=== PATIENT | male | born 1985 | race Caucasian/White ===

== ENCOUNTER 2017-04-01 18:28 | Emergency (ER) | payer SELFPAY ==
[~2017-04-01] VITALS: Ht 180.3 cm; Wt 67.0 kg
[~2017-04-01 18:28] MED LIST: CHLO.12%30 SSP; CLIN150 PO; HYDR-3533 PO; IBUP800T23 PO
[2017-04-01 18:29] VITALS: BP 136/87; PULSE 62; RESP 20; TEMP 97.9; O2SAT 99
[2017-04-01] MEDS ORDERED: PROPARACAINE HCL 0.5% OPHT SOLN 15 ML BTL RIGHT EYE ONE (19:00)
--- NOTE | 2017-04-01 19:05 | PD ---
HPI Chief Complaint: Eye Problems/Injury Time Seen by Provider: 19:03 Travel History International Travel<30 days: No Contact w/Intl Traveler<30days: No Traveled to known affect area: No History of Present Illness HPI Patient comes in complaining of foreign body sensation. Patient states this started approximately 3 or 4 hours ago while he was using a multifocal button grinder. Patient states he tried dunking his head in a bucket of water seemed to make his symptoms worse. Patient has otherwise been "trying to deal with it". Patient reports some irritation from the sun and when he gets sweat in his right eye. Denies any radiation of the pain. Patient reports associated blurred vision. Describes pain as just an irritation in his right eye without radiation. Patient is uncertain of his last tetanus shot. [facility] Past Medical History Medical History: Denies Significant Hx Social History Alcohol Use: No Tobacco Use: Yes (1/2 ppd) Substance Use: No Allergies-Medications (Allergen,Severity, Reaction): Coded Allergies: No Known Allergies (Unverified , 04/01/17) Reported Meds & Prescriptions Reported Meds & Active Scripts Active Erythromycin Opth Oint 5 Mg/Gm Oint 1 Applic RIGHT EYE QID Review of Systems Except as stated in HPI: all other systems reviewed are Neg Physical Exam Narrative GENERAL: Well-developed, well nourished, in no acute distress, and non-ill appearing. SKIN: Focused skin assessment warm and dry. HEAD: Atraumatic. Normocephalic. EYES: Pupils equal and round. EOMI. No scleral icterus. No injection or drainage. Small black foreign body right eye. ENT: No nasal bleeding or discharge. Mucous membranes pink and moist. NECK: Trachea midline. Supple. No nuclear rigidity. RESPIRATORY: No accessory muscle use. No respiratory distress. MUSCULOSKELETAL: No obvious deformities. No clubbing. No cyanosis. No edema. Full range of motion. NEUROLOGICAL: Awake and alert. No obvious cranial nerve deficits. Motor grossly within normal limits. Normal speech. PSYCHIATRIC: Appropriate mood and affect; insight and judgment normal. Data Data Last Documented VS Vital Signs Date Time Temp Pulse Resp B/P Pulse Ox O2 Delivery O2 Flow Rate FiO2 04/01/17 19:00 62 20 04/01/17 18:29 97.9 136/87 99 Room Air Orders Proparacaine 0.5% Opth Soln (Alcaine 0.5 (04/01/17 19:00) Tetanus/Diphtheria Tox Adult (Tetanus/Di (04/01/17 19:15) MDM Medical Decision Making Medical Screen Exam Complete: Yes Emergency Medical Condition: Yes Differential Diagnosis Foreign body, corneal abrasion, corneal ulcer, flash burn, other Narrative Course The patient presented with foreign body to eye. The patient underwent Coker Lamp exam with stain, as well as lid eversion. The foreign body was removed without incident and patient tolerated this well. Repeat exam revealed no retained foreign body. No history to suspect corneal ulceration as well. There is no evidence of iritis, glaucoma, preseptal cellulitis, periorbital or orbital cellulitis. Will place patient on ophthalmologic antibiotics. This was discussed with the patient. The patient was instructed to follow up with ophthalmology or return here if worsened, increased pain, decreased vision, swelling around the eye or as needed. Ophthalmology referral was given. The patient agreed with plan. Patient in no obvious distress upon re-evaluation. Patient was asked if they wanted to speak to my attending, which the patient did not wish to do at this time. Any questions/concerns in reference to patient diagnosis/condition discussed and clarified prior to patient's discharge. Reinforced sheer importance of close follow up with transportation planning engineer. Instructed patient to return to ED immediately, if symptoms return/worsen. Pt showed understanding of above instructions. Further instructions and recommendations were detailed in discharge paperwork. Pt ambulated without difficulty out of ED at discharge. Procedures Procedure Narrative Verbal consent was obtained. Affected eye was anesthetized using proparacaine. Foreign body was easily removed using a Q-tip. Fluorescein staining and Wood lamp exam performed with small uptake seen. Negative Ranjeet sign. No hyphema, hyperemia, or rust ring. Eyelid was everted with no foreign body noted. No tenderness bilateral temporal arteries to palpation. Patient tolerated procedure well. Diagnosis Primary Impression: Foreign body of right eye Qualified Code: T15.91XA - Foreign body of right eye, initial encounter Referrals: Arianne Araujo MD Patient Instructions: Eye Foreign Body (ED), General Instructions Additional Instructions: Follow-up with Dr. Araujo in one to 3 days for reevaluation. Take all medication as prescribed. Wear eye protection in the future. Return to the emergency department if symptoms get worse. Med/Other Pt SpecificInfo: Prescription(s) given Scripts Erythromycin Opth Oint 5 Mg/Gm Oint1 Applic RIGHT EYE QID #1 TUBE Ref 0 Prov:Melissa Melvin MD 04/01/17 Disposition: 01 DISCHARGE HOME Condition: Stable Jaime Alvarado Apr 01, 2017 19:05
[2017-04-01] MEDS ORDERED: TETANUS/DIPHTHERIA TOXOID ADULT 0.5 ML VIAL IM ONE (19:15)
[2017-04-01] MEDS ORDERED: ERYTOIN10 RIGHT EYE (19:19)
== END 2017-04-01 20:18 | disposition home or self-care (01) ==
LOC: NEPK 18:28
DX: S05.8X1A Other injuries of right eye and orbit, initial encounter (principal); T15.91XA Foreign body on external eye, part unspecified, right eye, initial encounter; Z23 Encounter for immunization; F17.210 Nicotine dependence, cigarettes, uncomplicated
CPT/HCPCS: 65205; 90471; 90714

== ENCOUNTER 2017-04-16 13:15 | Emergency (ER) | payer SELFPAY ==
[~2017-04-16] VITALS: Ht 180.3 cm; Wt 73.0 kg
[~2017-04-16 13:15] MED LIST changes: -CHLO.12%30 SSP; -CLIN150 PO; +ERYTOIN10 RIGHT EYE; -HYDR-3533 PO; -IBUP800T23 PO
[2017-04-16 13:17] VITALS: BP 130/77; PULSE 84; RESP 16; TEMP 98.8; O2SAT 98
== END 2017-04-16 16:12 | disposition left against medical advice (07) ==
LOC: NED 13:15
DX: Z53.9 Procedure and treatment not carried out, unspecified reason (principal)
CPT/HCPCS: 99281

== ENCOUNTER 2017-04-18 16:11 | Emergency (ER) | payer SELFPAY ==
[~2017-04-18] VITALS: Ht 180.3 cm; Wt 73.0 kg
[2017-04-18 16:13] VITALS: BP 130/85; PULSE 82; RESP 15; TEMP 98.4; O2SAT 99
[2017-04-18] MEDS ORDERED: LIDOCAINE HCL 1% PF 30 ML VIAL ONE (16:53)
[2017-04-18] MEDS ORDERED: LIDOCAINE HCL 1% PF 30 ML VIAL INFIL ONE (17:00)
[2017-04-18] MEDS ORDERED: CLIN1CAP6 PO (17:01)
--- NOTE | 2017-04-18 17:02 | PD ---
HPI Chief Complaint: Laceration/Skin Injury Time Seen by Provider: 16:43 Travel History International Travel<30 days: No Contact w/Intl Traveler<30days: No Traveled to known affect area: No History of Present Illness HPI 31-year-old male here with complaint of right thumb pain. Patient accidentally cut his right thumb with a box loader 5 days ago. He has had increasing swelling since, notes purulent drainage. No streaking erythema, fevers. Hand dominant. Tetanus is up-to-date. [facility] Past Medical History Medical History: Denies Significant Hx Past Surgical History Surgical History: No Previous Surgery Social History Alcohol Use: Yes (occ) Tobacco Use: Yes (1/2 ppd) Substance Use: No Allergies-Medications (Allergen,Severity, Reaction): Coded Allergies: No Known Allergies (Unverified , 04/18/17) Reported Meds & Prescriptions Reported Meds & Active Scripts Active No Active Prescriptions or Reported Medications Review of Systems Except as stated in HPI: all other systems reviewed are Neg Physical Exam Narrative GENERAL: Well-appearing male in no acute distress SKIN: Focused skin assessment warm/dry. HEAD: Normocephalic. EYES: No scleral icterus. No injection or drainage. ENT: Mucous membranes pink and moist. NECK: Supple CARDIOVASCULAR: Regular rate and rhythm. RESPIRATORY: No accessory muscle use. MUSCULOSKELETAL: Right hand with swelling around the thumb, obvious puncture site from previous box loader injury draining purulent fluid. Erythema of the distal phalanx with palpable fluctuance. There is edema, but this does not extend proximally. No streaking erythema. No pain with range of motion. NEUROLOGICAL: Awake and alert. Normal speech. PSYCHIATRIC: Appropriate mood and affect; insight and judgment normal. Data Data Last Documented VS Vital Signs Date Time Temp Pulse Resp B/P Pulse Ox O2 Delivery O2 Flow Rate FiO2 04/18/17 16:47 18 04/18/17 16:13 98.4 82 130/85 99 Orders Lidocaine Pf 1% Inj (Xylocaine-Mpf 1% In (04/18/17 17:00) Wound Culture And Gram Stain (04/18/17 16:52) Lidocaine Pf 1% Inj (Xylocaine-Mpf 1% In (04/18/17 16:53) MDM Medical Decision Making Medical Screen Exam Complete: Yes Emergency Medical Condition: Yes Medical Record Reviewed: Yes Differential Diagnosis 31-year-old male here with complaint of right thumb pain. Exam is consistent with felon versus abscess versus cellulitis. Narrative Course Digital block and I&D performed, please see procedure note. We'll discharge home with antibiotics and outpatient hand surgery follow-up. Procedures Procedure Narrative INCISION AND DRAINAGE OF ABSCESS: The area was prepped and was sterilely draped. A digital block with of 1% Xylocaine without epinephrine with a total number 8 mL was used to anesthetize the area. The area was properly anesthetized. A number 11 scalpel was used to make a 1-cm incision across the area of the abscess. Cultures were obtained. The abscess was drained an irrigated with normal saline. Sterile dressing applied. Diagnosis Primary Impression: Felon Referrals: Ortega Nichole III, MD 2 days Additional Instructions: Finish antibiotics as prescribed. Follow-up with hand surgeon as discussed. Return to the ER for the warning signs discussed. Med/Other Pt SpecificInfo: Prescription(s) given Scripts Clindamycin 300 Mg [id number] Mg PO TID #21 CAP Ref 0 Prov:Nora Mckeon MD 04/18/17 Disposition: 01 DISCHARGE HOME Condition: Stable Nora Mckeon MD Apr 18, 2017 17:02
== END 2017-04-18 17:28 | disposition home or self-care (01) ==
LOC: NEPD 16:11
DX: L03.011 Cellulitis of right finger (principal); A49.02 Methicillin resistant Staphylococcus aureus infection, unspecified site; F17.200 Nicotine dependence, unspecified, uncomplicated
CPT/HCPCS: 10060; 86403; 87070; 87186; 87205